=== PATIENT | male | born 1945 | race Caucasian/White ===

== ENCOUNTER → 2019-10-27 | Day surgery (SDC) | payer MEDICARE, BC ==
[~2019-10-27] VITALS: Ht 160 cm; Wt 98.0 kg
[2019-10-27] VITALS (9 sets, daily range): BP systolic 117–136; BP diastolic 52–82
[~2019-10-27] MED LIST: Acetylcholine Injection (OR) ONE; BSS 15ml BTL ONE; BSS 500ml btl ONE; Bupivacaine 0.75% 30ml vial INJ ONE; CRESTOR20 MG ORAL; Carbachol 0.01% Op Soln 1.5ml vial ONE; Dexamethasone 4mg/ml vial ONE; EPINEPHrine 1mg/1ml Amp ONE; FLOMAX0.4 MG ORAL; Fluorescein Strips ONE; LR 1000ml 1,000 ML IVLG SCH; LR 1000ml ONE; Lidocaine 1% MPF 10mg/ml 5ml ONE; Lidocaine 4% Amp ONE; METFORMIN HCL500 M1 ORAL; METOPROLOL SUCC50 MG ORAL; NS Irrig 1000ml ONE; PRADAXA110 MG PO; PROSCAR5 MG ORAL; Polysporin Opth Oint 3.5gm ONE; Povidone-Iodine 5% opth solution ONE; Pred Forte 1% Opth Susp 1ml ONE; Propofol 200mg/20ml IV ONE; RAMIPRIL5 MG ORAL; Sodium Hyaluronate 10 mg/ml 0.85ml ONE; Sterile Water Irrig 1000ml IRRIG ONE; Tetracaine 0.5% Opth 4ml Soln ONE; Timolol 0.5% Op Soln 2.5ml ONE; fentaNYL 100 mcg/2 mL IV ONE; fentaNYL 100 mcg/2 mL IV PRN
--- NOTE | 2019-10-27 09:08 | Pre-Procedure Note/Attestation ---
Pre-Procedure Note/Attestation Complete Prior to Procedure Planned Procedure: right - Removal of cataract and placement of intraocular lens, right eye Procedure Narrative: Removal of cataract and placement of intraocular lens, right eye Indications for Procedure Pre-Operative Diagnosis: cataract, combined, right eye Attestation I attest that I discussed the nature of the procedure; its benefits; risks and complications; and alternatives (and the risks and benefits of such alternatives ), prior to the procedure, with the patient (or the patient's legal customer retention representative). I attest that, if there was a reasonable possibility of needing a blood transfusion, the patient (or the patient's legal customer retention representative) was given the [place] [employer] standardized written summary, pursuant to the [place] Blood Safety Act ([place] Health and Safety Code # 1645, as amended). I attest that I re-evaluated the patient just prior to the surgery and that there has been no change in the patient's H&P, except as documented below: Kvng Boateng MD Oct 27, 2019 09:08
[2019-10-27] MEDS: Akten 3.5% 1ml Btl RIGHT EYE SCH ×3 (09:36→10:10)
[2019-10-27] MEDS: Ciprofloxacin Opth Soln 2.5ml RIGHT EYE SCH ×3 (09:36→10:10)
[2019-10-27] MEDS: Cyclopentolate 1% Opth Sol 2ml RIGHT EYE SCH ×3 (09:37→10:11)
[2019-10-27] MEDS: Tobradex Opth Susp 2.5ml RIGHT EYE SCH ×3 (09:37→10:11)
[2019-10-27] MEDS: Tropicamide 1% Opth 15ml Soln RIGHT EYE SCH ×3 (09:37→10:11)
[2019-10-27] MEDS: Phenylephrine 10% Opth Soln 5ml RIGHT EYE SCH ×3 (09:37→10:11)
--- NOTE | 2019-10-27 10:10 | NUR ---
IV LR WAS STARTED BY MARYANN CAO RN. NO S/S OF INFILTRATION.
[2019-10-27 10:29] LABS: BASOPHILS % (AUTO) 0.8 % (0.0-2.0); EOSINOPHILS % (AUTO) 1.1 % (0.0-3.0); HEMATOCRIT 43.3 % (42.0-52.0); HEMOGLOBIN 14.8 G/DL (14.2-18.0); LYMPHOCYTES % (AUTO) 20.3 % (20.0-45.0); MEAN CORPUSCULAR VOLUME 94 FL (80-99); NEUTROPHILS % (AUTO) 70.8 % (45.0-75.0); PLATELET COUNT 146 K/UL (150-450); RED BLOOD COUNT 4.59 M/UL (4.70-6.10); RED CELL DISTRIBUTION WIDTH 11.5 % (11.6-14.8); WHITE BLOOD COUNT 6.8 K/UL (4.8-10.8)
[2019-10-27 10:40] LABS: ANION GAP 9 mmol/L (5-15); BLOOD UREA NITROGEN 13 mg/dL (7-18); CALCIUM 8.5 MG/DL (8.5-10.1); CARBON DIOXIDE 25 MMOL/L (21-32); CHLORIDE 108 MMOL/L (98-107); CREATININE 0.9 MG/DL (0.55-1.30); POTASSIUM 4.4 MMOL/L (3.5-5.1); SODIUM 142 MMOL/L (136-145)
--- NOTE | 2019-10-27 10:45 | Anethesia Preoperative Eval ---
Anesthesia Pre-op PMH/ROS General Date of Evaluation: Oct 27, 2019 Time of Evaluation: 10:42 Anesthesiologist: Nanette ASA Score: ASA 3 Mallampati Score Class I : Soft palate, uvula, fauces, pillars visible Class II: Soft palate, uvula, fauces visible Class III: Soft palate, base of uvula visible Class IV: Only hard plate visible Mallampati Classification: Class III Surgeon: Tasneem Diagnosis: R eye cataract Surgical Procedure: Cataract extaction Anesthesia History: none Family History: no anesthesia problems Allergies: Coded Allergies: No Known Allergies (Unverified , 10/27/19) Medications: see eMAR Patient NPO?: Yes Past Medical History Cardiovascular: Reports: HTN - stable, arrhythmia - A fib; Denies: CAD, ND, valve dz, other Pulmonary: Reports: NAGA; Denies: asthma, COPD, other Gastrointestinal/Genitourinary: Reports: GERD; Denies: CRI, ESRD, other Neurologic/Psychiatric: Denies: dementia, CVA, depression/anxiety, TIA, other Endocrine: Reports: DM - stable on pills; Denies: hypothyroidism, steroids, other HEENT: Reports: cataract (L), cataract (R); Denies: glaucoma, [place]VI (L), [place]VI (R), other Hematology/Immune: Denies: anemia, DVT, bleeding disorder, other Musculoskeletal/Integumentary: Denies: OA, RA, DJD, DDD, edema, other Other: obesity PMH Narrative: as above PSxH Narrative: See H&P Anesthesia Pre-op Phys. Exam Physician Exam Last Vital Signs Date Time Temp Pulse Resp B/P (MAP) Pulse Ox O2 Delivery O2 Flow Rate FiO2 10/27/19 09:56 97.6 56 20 122/71 98 Room Air Constitutional: NAD Neurologic: CN 2-12 intact Cardiovascular: RRR, no M/R/G Respiratory: CTA Gastrointestinal: other - obesity Airway Exam Mallampati Score: Class III MO: limited Neck: short ROM: limited Teeth: missing Dentures: no upper, no lower Anesthesia Pre-op A/P Labs Hematology Test 10/27/19 10:10 White Blood Count 6.8 K/UL (4.8-10.8) Red Blood Count 4.59 M/UL (4.70-6.10) L Hemoglobin 14.8 G/DL (14.2-18.0) Hematocrit 43.3 % (42.0-52.0) Mean Corpuscular Volume 94 FL (80-99) Mean Corpuscular Hemoglobin 32.2 PG (27.0-31.0) H Mean Corpuscular Hemoglobin Concent 34.2 G/DL (32.0-36.0) Red Cell Distribution Width 11.5 % (11.6-14.8) L Platelet Count 146 K/UL (150-450) L Mean Platelet Volume 8.2 FL (6.5-10.1) Neutrophils (%) (Auto) 70.8 % (45.0-75.0) Lymphocytes (%) (Auto) 20.3 % (20.0-45.0) Monocytes (%) (Auto) 7.0 % (1.0-10.0) Eosinophils (%) (Auto) 1.1 % (0.0-3.0) Basophils (%) (Auto) 0.8 % (0.0-2.0) Coagulation Test 10/27/19 10:10 Prothrombin Time Pending Prothromb Time International Ratio Pending Activated Partial Thromboplast Time Pending Chemistry Test 10/27/19 10:10 Sodium Level 142 MMOL/L (136-145) Potassium Level 4.4 MMOL/L (3.5-5.1) Chloride Level 108 MMOL/L (98-107) H Carbon Dioxide Level 25 MMOL/L (21-32) Anion Gap 9 mmol/L (5-15) Blood Urea Nitrogen 13 mg/dL (7-18) Creatinine 0.9 MG/DL (0.55-1.30) Estimat Glomerular Filtration Rate mL/min (>60) Glucose Level 157 MG/DL (74-106) H Calcium Level 8.5 MG/DL (8.5-10.1) Studies Pre-op Studies: EKG - R Risk Assessment & Plan Assessment: ASA 3 Plan: MAC Status Change Before Surgery: Aayush Meza MD Oct 27, 2019 10:45
--- NOTE | 2019-10-27 11:47 | Discharge Instructions ---
Discharge Instructions Discharge Instructions Follow Up Orders Wear shield at all times except to place eye drops Continue preoperative eye drops Followup with Dr Boateng tomorrow in his office For Congestive Heart Failure Reminder Report to your physician any weight gain of 5 pounds or more in one week. Kvng Boateng MD Oct 27, 2019 11:47
--- NOTE | 2019-10-27 11:51 | Brief Operative Note ---
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
--- NOTE | 2019-10-27 11:52 | Immediate Post-Op Evaluation ---
Immediate Post-Op Evalulation Immediate Post-Op Evalulation Procedure: R eye cataract extraction with iol Date of Evaluation: Oct 27, 2019 Time of Evaluation: 11:51 IV Fluids: 200 Blood Products: none Estimated Blood Loss: min Urinary Output: none Blood Pressure Systolic: 117 Blood Pressure Diastolic: 72 Pulse Rate: 58 Respiratory Rate: 18 O2 Sat by Pulse Oximetry: 98 Temperature (Fahrenheit): 97.6 Pain Score (1-10): 1 Nausea: No Vomiting: No Complications none Patient Status: awake, patent, none Hydration Status: adequate Aayush Fitzpatrick MD Oct 27, 2019 11:52
--- NOTE | 2019-10-27 12:33 | 48 Hour Post Anesthesia Eval ---
Post Anesthesia Evaluation Procedure: R eye cataract extraction with iol Date of Evaluation: Oct 27, 2019 Time of Evaluation: 12:32 Blood Pressure Systolic: 128 0: 77 Pulse Rate: 62 Respiratory Rate: 18 Temperature (Fahrenheit): 97.6 O2 Sat by Pulse Oximetry: 98 Airway: patent Nausea: No Vomiting: No Pain Intensity: 1 Hydration Status: adequate Cardiopulmonary Status: stable Mental Status/LOC: patient returned to baseline Follow-up Care/Observations: n/a Post-Anesthesia Complications: none Follow-up care needed: ready to discharge Aayush Fitzpatrick MD Oct 27, 2019 12:33
--- NOTE | 2019-10-27 17:15 | Operative Note - Dictated ---
DATE OF OPERATION: 10/27/2019 SURGEON: Kvng Boateng M.D. DISTRICT OPERATIONS MANAGER SURGEON: None. ANESTHESIOLOGIST: Aayush Fitzpatrick M.D. ANESTHESIA: Local/standby/monitored anesthesia care. PREOPERATIVE DIAGNOSES: 1. Cataract, combined, right eye. 2. Miosis, right eye. POSTOPERATIVE DIAGNOSES: 1. Cataract, combined, right eye. 2. Myosis, right eye. 3. Floppy iris syndrome, right eye. PROCEDURES: 1. Phacoemulsification of cataract, right eye. 2. Placement of posterior chamber intraocular lens, right eye (model Kyle, [employer]of, [id number], power 19.5 diopters). 3. Use of Malyugin ring (7.0 mm). COMPLICATIONS: None. SPECIMENS: None. INDICATIONS FOR SURGERY: The patient has had the painless progressive decrease in visual acuity in the right eye secondary to cataract. The patient understands the risk of surgery including infection, bleeding, need for further surgery, loss of vision, no improvement in vision, loss of the eye, loss of life, glaucoma, and retinal detachment, understands these risks and elects to proceed with surgery. FINDINGS: The patient had a +4 nuclear sclerotic cataract as well as +2 cortical cataract. OPERATIVE NOTE: After informed consent was obtained, the patient was brought into the operating room, placed in supine position. Cardiac and respiratory monitors were attached. A time-out was performed and all criteria were met and everyone in the room agreed. The right eye was then draped and prepped in a sterile manner for ocular surgery. A lid speculum was placed in the eye. A 1% lidocaine preservative-free was injected at the approximate 9 o'clock limbus. A conjunctiva peritomy from approximately 8:30 to 9:30 was made and dissected posteriorly. Hemostasis was maintained with bipolar cautery. A. 2.6 mm limbal incision was made centered approximately 9 o'clock and dissected anteriorly. A paracentesis was made at approximately 12 o'clock and Shugarcaine was injected into the anterior chamber followed by Azeb. The anterior chamber was then entered using a 2.6 mm keratome through the limbal incision. The pupil was already noted to be only approximately 4 mm and floppy in nature, and a Malyugin ring, 7.0 mm was injected into the anterior chamber and hooked onto the pupillary margin at four points. An anterior capsulorrhexis was then performed. Hydrodissection and hydrodelineation of the lens was then performed. The lens was then phacoemulsified using divide and conquer four-quadrant technique. Residual cortical material was then aspirated. The lens was taken from its package, placed into the cartridge and Healon was injected into the anterior chamber and capsular bag after the cortex had been previously removed with an I/A tip. The tip of the cartridge was placed through the limbal incision. The lens was injected into the capsular bag and centered nicely with a Sinskey hook. The Malyugin ring was then removed. The Healon was then aspirated from the anterior chamber and capsular bag. One 10-0 nylon interrupted suture was then placed through the limbal incision, the knot was rotated and buried. The wounds were hydrated, closed also, and the wounds were checked and found to be watertight. The conjunctiva was then closed with forceps cautery. The lid speculum and drapes were removed from the eye and drops of Pred Forte, TobraDex, and ciprofloxacin were applied to the eye followed by Maxitrol ointment and a shield. The patient tolerated the procedure well and left the operating room awake, alert, and in stable condition. Kvng Boateng M.D. DR: DEWAYNE JOB#: [id number] CC:
== END | disposition home or self-care (01) ==
LOC: SUR 08:54
DX: H25.811 Combined forms of age-related cataract, right eye (principal); I10 Essential (primary) hypertension; I48.91 Unspecified atrial fibrillation; G47.33 Obstructive sleep apnea (adult) (pediatric); E66.9 Obesity, unspecified
CPT/HCPCS: 36415; 66984; 80048; 82962; 85025; 85610; 85730; J0171; J1100; J2704; J3010; J7120